=== PATIENT | female | born 1960 | race Hispanic/Latino ===

== ENCOUNTER 2017-09-03 14:46 | Outpatient (CLI) | payer BC ==
--- NOTE | 2017-09-03 15:28 | Mammography Report ---
BILATERAL MAMMOGRAM: FINDINGS: The breasts are almost entirely fat (<25% glandular). No mass, distortion, suspicious calcification, or skin change is seen. There is no significant change compared to prior examination in May 2016. CAD was utilized. IMPRESSION: Negative mammogram. There is no mammographic evidence of malignancy. RECOMMENDATION: Follow-up per ACS guidelines. BI-RADS CATEGORY: 1 = Negative ACR BI-RADS MAMMOGRAPHIC CODES: 0 = Needs additional imaging evaluation; 1 = Negative; 2 = Benign; 3 = Probably benign; 4 = Suspicious; 5 = Malignant; 6 = Known biopsy-proven malignancy COMMENT: 1. Dense breast tissue, i.e., adenosis, fibrocystic changes, etc., may obscure an underlying neoplasm. 2. Approximately 10% of cancers are not detected with mammography. 3. A negative mammography report should not delay biopsy if a clinically suspicious mass is present. COMMENT: Patient follow-up letters are generated in [employer]
== END 2017-09-03 14:47 | disposition home or self-care (01) ==
LOC: MAMMO 14:46
PROVIDERS: ATTEND Obstetrics & Gynecology
DX: Z12.31 Encounter for screening mammogram for malignant neoplasm of breast (principal)
CPT/HCPCS: 77067; G0202

== ENCOUNTER 2019-04-18 12:50 | Outpatient (CLI) | payer BC ==
--- NOTE | 2019-04-21 10:10 | Mammography Report ---
BILATERAL DIGITAL SCREENING MAMMOGRAM WITH CAD INDICATION: Routine screening mammography. TECHNIQUE: Digital bilateral 2D mammography was obtained in the craniocaudal and mediolateral obliq ue projections. This examination was interpreted with the benefit of Computer-Aided Detection analysi s. COMPARISON: 09/03/2017 FINDINGS: Breast Density: There are scattered areas of fibroglandular density. No mass, architectural distortion or suspicious calcifications. IMPRESSION:No mammographic evidence of malignancy. BI-RADS Category 1: Negative. No mammographic evidence of malignancy. Recommend routine screening m ammography in one year. A "normal" or negative report should not discourage follow up or biopsy of a clinically significant f inding. A written summary of these findings will be mailed to the patient. The patient will be entered into a mammography reporting system which will generate a reminder letter for the patient's next appointmen t at the appropriate interval. The [employer] recommends yearly mammograms starting at age 40 and continuing as l fredy as a woman is in good health. Breast MRI is recommended for women with an approximate 20-25% or greater lifetime risk of breast cancer, including women with a strong family history of breast or ova akshat cancer or who have been treated for Hodgkin's disease. Signer Name: Chapo Peguero MD Signed: 04/21/2019 10:05 AM Workstation Name: [id number]
--- NOTE | 2019-04-21 10:16 | Mammography Report ---
DEXA BONE DENSITY SCAN INDICATION: SCRN OSTEO. Postmenopausal. COMPARISON: None available. LUMBAR SPINE (L1-L4): Bone mineral density (BMD) is 0.999 g/cm2. T-score is -0.4 (standard deviations of Young Adult mean). Z-score is +0.9 (standard deviations of Age Matched mean). TOTAL LEFT HIP Bone mineral density (BMD) is 1.011 g/cm2. T-score is +0.6 (standard deviations of Young Adult mean). Z-score is -1.5 (standard deviations of Age Matched mean). LEFT FEMORAL NECK: Bone mineral density (BMD) is 0.823 g/cm2. T-score is -0.2 (standard deviations of Young Adult mean). Z-score is +1.0 (standard deviations of Age Matched mean). IMPRESSION: WHO classification : Normal with average fracture risk based on both spine and left hip m easurements. Signer Name: Chapo Peguero MD Signed: 04/21/2019 10:11 AM Workstation Name: [id number]
== END 2019-04-18 12:51 | disposition home or self-care (01) ==
LOC: MAMMO 12:50
PROVIDERS: ATTEND Obstetrics & Gynecology
DX: Z12.31 Encounter for screening mammogram for malignant neoplasm of breast (principal); Z13.820 Encounter for screening for osteoporosis; Z78.0 Asymptomatic menopausal state
CPT/HCPCS: 77067; 77080